=== PATIENT | female | born 1995 | race Caucasian/White ===

== ENCOUNTER 2016-07-11 04:11 | Inpatient (IN) | payer MEDICAID ==
[~2016-07-11] VITALS: Ht 149.9 cm; Wt 49.4 kg
[2016-07-11 04:35] VITALS: BP 116/56; PULSE 91; RESP 18; TEMP 97.9; O2SAT 98
[2016-07-11] MEDS ORDERED: DICY20TA55 PO (04:44)
[2016-07-11] MEDS ORDERED: NACL 0.9% 1,000 ML IV ONE (04:44)
[2016-07-11] MEDS ORDERED: MORPHINE 4 MG/ML INJ. SYRINGE IVP ONE (04:45)
[2016-07-11] MEDS ORDERED: KETOROLAC TROMETHAMINE 30 MG VIAL IVP ONE (04:45)
[2016-07-11] MEDS ORDERED: DIPHENHYDRAMINE INJ 50 MG/ML VIAL IVP ONE (04:45)
[2016-07-11] MEDS ORDERED: ONDANSETRON HCL 4 MG/2 ML VIAL IVP ONE (04:45)
[2016-07-11 05:26] LABS: BASOPHILS % (AUTO) 0.7 % (0.0-2.0); EOSINOPHILS # (AUTO) 0.1 K/uL (0.0-0.4); EOSINOPHILS % (AUTO) 1.6 % (0.0-4.0); HEMATOCRIT 40.3 % (36-48); HEMOGLOBIN 13.5 g/dL (12.0-16.0); LYMPHOCYTES % (AUTO) 29.5 % (20.5-51.5); MEAN CORPUSCULAR HEMOGLOBIN 28 pg (27-31); MEAN CORPUSCULAR HGB CONC 33 % (32-36); MEAN CORPUSCULAR VOLUME 85 fL (79.0-98.0); MONOCYTES # (AUTO) 0.4 K/uL (0.0-1.0); MONOCYTES % (AUTO) 5.9 % (1.7-9.3); NEUTROPHILS # (AUTO) 4.4 K/uL (1.8-7.7); NEUTROPHILS % (AUTO) 62.3 % (40.0-70.0); PLATELET COUNT (AUTO) 265 K/uL (130-430); RED BLOOD CELL COUNT(AUTO) 4.74 MIL/uL (4.2-6.2); RED CELL DISTRIBUTION WIDTH 12.4 % (9.0-15.0); WHITE BLOOD COUNT (AUTO) 6.9 K/uL (4.8-10.8)
[2016-07-11 05:32] LABS: CALCIUM 9.5 mg/dL (8.4-11.0); CREATININE 0.56 mg/dL (0.55-1.30); POTASSIUM 3.8 mmol/L (3.5-5.1)
[2016-07-11 05:36] LABS: ALBUMIN 4.4 g/dL (3.4-4.8); TOTAL BILIRUBIN 0.5 mg/dL (0.0-1.0); TOTAL PROTEIN, SERUM 8.7 g/dL (6.4-8.3)
[2016-07-11 05:38] LABS: BILIRUBIN,URINE NEGATIVE (NEGATIVE); BLOOD, URINE 1+ (NEGATIVE); CLARITY/URINE CLEAR (CLEAR); COLOR,URINE YELLOW (YELLOW); GLUCOSE,URINE NEGATIVE (NEGATIVE); KETONES,URINE TRACE (NEGATIVE); LEUKOCYTE ESTERASE ,URINE NEGATIVE (NEGATIVE); NITRITE, URINE NEGATIVE (NEGATIVE); PROTEIN URINE NEGATIVE (NEGATIVE); UROBILINOGEN,URINE 0.2 (0.2-1.0)
[2016-07-11 05:41] LABS: BACTERIA,URINE FEW /HPF (None Seen); MUCUS,URINE 1+ /LPF (None Seen); RBC,URINE 0-3 /HPF (0-3)
[2016-07-11] MEDS ORDERED: MORPHINE 2 MG/ML INJ. SYRINGE IVP ONE (06:45)
[2016-07-11] MEDS ORDERED: LR 1,000 ML IV ONE (10:15)
[2016-07-11 10:35] VITALS: BP 109/68; PULSE 69; RESP 18; TEMP 96.8; O2SAT 99
[2016-07-11] MEDS ORDERED: IOHEXOL 50 ML IV ONE (13:25)
[2016-07-11] MEDS ORDERED: NS IRRIG SOLN 1000 ML IR ONE (14:00)
[2016-07-11] MEDS ORDERED: GLYCOPYRROLATE 0.2 MG/ML VIAL ONE (14:00)
[2016-07-11] MEDS ORDERED: ONDANSETRON HCL 4 MG/2 ML VIAL ONE (14:00)
[2016-07-11] MEDS ORDERED: LR 1,000 ML IV.SOLN IV ONE (14:00)
[2016-07-11] MEDS ORDERED: PROPOFOL 200MG/ 20ML VIAL (DIPRIVAN) IV ONE (14:00)
[2016-07-11] MEDS ORDERED: NEOSTIGMINE METHYLSULFATE 1 MG/ML, 10 ML VIAL ONE (14:00)
[2016-07-11] MEDS ORDERED: fentaNYL CITRATE 250 MCG/5 ML AMP ONE (14:00)
[2016-07-11] MEDS ORDERED: SEVOFLURANE 15 MIN GAS INH ONE (14:00)
[2016-07-11] MEDS ORDERED: MIDAZOLAM HCL 5 MG/5 ML VIAL ONE (14:00)
[2016-07-11] MEDS ORDERED: LR 1,000 ML IV SCH (14:03)
[2016-07-11] MEDS ORDERED: METOCLOPRAMIDE HCL 10 MG/2 ML VIAL IVP PRN (14:15)
[2016-07-11] MEDS ORDERED: MORPHINE 2 MG/ML INJ. SYRINGE IVP PRN ×3 (14:15)
[2016-07-11] MEDS: MORPHINE 2 MG/ML INJ. SYRINGE IVP PRN (17:55)
[2016-07-11] MEDS: ONDANSETRON HCL 4 MG/2 ML VIAL IVP PRN (17:55)
[2016-07-11] MEDS: cefOXitin SODIUM 1 GM in D5W 50 ML IV SCH (18:33)
[2016-07-11 20:00] VITALS: BP 128/76; PULSE 78; RESP 18; TEMP 97.6; O2SAT 96
[2016-07-12] VITALS (7 sets, daily range): BP systolic 109–121; BP diastolic 70–86; PULSE 77–88; RESP 16–18; TEMP 96–97.8; O2SAT 96–99
[2016-07-12] MEDS: cefOXitin SODIUM 1 GM in D5W 50 ML IV SCH ×5 (00:17→23:11)
[2016-07-12] MEDS: MORPHINE 2 MG/ML INJ. SYRINGE IVP PRN ×4 (00:26→14:53)
[2016-07-12 07:20] LABS: BASOPHILS % (AUTO) 0.5 % (0.0-2.0); EOSINOPHILS # (AUTO) 0.1 K/uL (0.0-0.4); EOSINOPHILS % (AUTO) 1.4 % (0.0-4.0); HEMATOCRIT 32.5 % (36-48); HEMOGLOBIN 10.9 g/dL (12.0-16.0); INR 1.1 (0.8-1.2); LYMPHOCYTES # (AUTO) 1.4 K/uL (1.0-5.5); LYMPHOCYTES % (AUTO) 25.5 % (20.5-51.5); MEAN CORPUSCULAR HEMOGLOBIN 29 pg (27-31); MEAN CORPUSCULAR HGB CONC 34 % (32-36); MEAN CORPUSCULAR VOLUME 85 fL (79.0-98.0); MONOCYTES # (AUTO) 0.5 K/uL (0.0-1.0); MONOCYTES % (AUTO) 9.7 % (1.7-9.3); NEUTROPHILS # (AUTO) 3.6 K/uL (1.8-7.7); NEUTROPHILS % (AUTO) 62.9 % (40.0-70.0); PLATELET COUNT (AUTO) 177 K/uL (130-430); PROTHROMBIN TIME 11.6 SECS (9.5-12.5); RED BLOOD CELL COUNT(AUTO) 3.82 MIL/uL (4.2-6.2); RED CELL DISTRIBUTION WIDTH 12.6 % (9.0-15.0); WHITE BLOOD COUNT (AUTO) 5.6 K/uL (4.8-10.8)
[2016-07-12 07:25] LABS: CALCIUM 8.5 mg/dL (8.4-11.0); CREATININE 0.71 mg/dL (0.55-1.30); POTASSIUM 3.6 mmol/L (3.5-5.1)
[2016-07-12 07:26] LABS: ALBUMIN 3.2 g/dL (3.4-4.8); TOTAL BILIRUBIN 0.5 mg/dL (0.0-1.0); TOTAL PROTEIN, SERUM 6.7 g/dL (6.4-8.3)
[2016-07-12] MEDS ORDERED: KETOROLAC TROMETHAMINE 30 MG VIAL IVP ONE (10:45)
[2016-07-12] MEDS ORDERED: ROCURONIUM BROMIDE 10 MG/ML (ZEMURON) IV ONE (10:45)
[2016-07-12] MEDS ORDERED: DEXAMETHASONE SOD PHOSPHATE 4 MG/ML VIAL IVP ONE (10:45)
[2016-07-12] MEDS ORDERED: EPINEPHrine 1 MG/ML AMP IVP ONE (10:45)
[2016-07-12] MEDS ORDERED: NS IRRIG SOLN 1000 ML IR ONE (10:45)
[2016-07-12] MEDS ORDERED: LR 1,000 ML IV.SOLN IV ONE (10:45)
[2016-07-12] MEDS ORDERED: SEVOFLURANE 15 MIN GAS INH ONE (10:45)
[2016-07-12] MEDS ORDERED: PROPOFOL 200MG/ 20ML VIAL (DIPRIVAN) IV ONE (10:45)
[2016-07-12] MEDS ORDERED: ONDANSETRON HCL 4 MG/2 ML VIAL IVP ONE (10:45)
[2016-07-12] MEDS ORDERED: fentaNYL CITRATE/PF 100 MCG/2 ML AMP IVP ONE (10:45)
[2016-07-12] MEDS ORDERED: IOHEXOL 50 ML IV ONE (11:02)
[2016-07-12] MEDS ORDERED: LR 1,000 ML IV SCH (11:10)
[2016-07-12] MEDS ORDERED: HYDROmorphone 1 MG INJ. 1 MG/ML AMPUL IVP PRN (11:15)
[2016-07-12] MEDS ORDERED: HYDROmorphone 2 MG/ML VIAL IVP PRN ×2 (11:15)
[2016-07-12] MEDS ORDERED: MEPERIDINE HCL/PF 25 MG/ML DISP.SYRIN IVP PRN (11:15)
[2016-07-12] MEDS ORDERED: HYDROmorphone 1 MG INJ. 1 MG/ML AMPUL IVP ONE (17:45)
[2016-07-12 17:48] LABS: BASOPHILS % (AUTO) 0.6 % (0.0-2.0); EOSINOPHILS % (AUTO) 0.7 % (0.0-4.0); HEMATOCRIT 34.4 % (36-48); HEMOGLOBIN 11.6 g/dL (12.0-16.0); LYMPHOCYTES # (AUTO) 1.5 K/uL (1.0-5.5); LYMPHOCYTES % (AUTO) 24.2 % (20.5-51.5); MEAN CORPUSCULAR HEMOGLOBIN 29 pg (27-31); MEAN CORPUSCULAR HGB CONC 34 % (32-36); MEAN CORPUSCULAR VOLUME 85 fL (79.0-98.0); MONOCYTES # (AUTO) 0.6 K/uL (0.0-1.0); MONOCYTES % (AUTO) 9.4 % (1.7-9.3); NEUTROPHILS # (AUTO) 3.9 K/uL (1.8-7.7); NEUTROPHILS % (AUTO) 65.1 % (40.0-70.0); PLATELET COUNT (AUTO) 192 K/uL (130-430); RED BLOOD CELL COUNT(AUTO) 4.03 MIL/uL (4.2-6.2); RED CELL DISTRIBUTION WIDTH 12.3 % (9.0-15.0)
[2016-07-12] MEDS: ONDANSETRON HCL 4 MG/2 ML VIAL IVP PRN (19:42)
[2016-07-13] VITALS: BP 121/76; PULSE 77; RESP 17; TEMP 97; O2SAT 99
[2016-07-13] MEDS: MORPHINE 2 MG/ML INJ. SYRINGE IVP PRN (03:32)
[2016-07-13 04:00] VITALS: BP 125/70; PULSE 70; RESP 18; TEMP 97.6; O2SAT 98
[2016-07-13] MEDS: cefOXitin SODIUM 1 GM in D5W 50 ML IV SCH ×2 (05:06→12:07)
[2016-07-13 07:24] LABS: ALBUMIN 3.5 g/dL (3.4-4.8); BILIRUBIN,DIRECT 0.1 mg/dL (0.0-0.3); TOTAL BILIRUBIN 0.4 mg/dL (0.0-1.0); TOTAL PROTEIN, SERUM 7.1 g/dL (6.4-8.3)
[2016-07-13 08:27] VITALS: BP 114/71; PULSE 89; RESP 19; TEMP 97.6; O2SAT 100
[2016-07-13 12:00] VITALS: BP 118/78; PULSE 96; RESP 21; TEMP 98.4; O2SAT 98
[2016-07-13] MEDS ORDERED: HYDR-1189 PO (13:08)
[2016-07-13] MEDS ORDERED: DOCU-144 PO (13:09)
[2016-07-13 14:00] VITALS: BP 118/78; PULSE 96; RESP 21; TEMP 98.4; O2SAT 98
[2016-07-13 16:00] VITALS: BP 106/66; PULSE 89; RESP 21; TEMP 98.6; O2SAT 99
== END 2016-07-13 16:45 | disposition home or self-care (01) | DRG 263 ==
LOC: SED 04:11 → SMU 10:10
PROVIDERS: ADMIT Surgery; ATTEND Surgery
PROC: BF121ZZ Fluoroscopy of Gallbladder using Low Osmolar Contrast (ICD-10-PCS; 2016-07-11)
PROC: 0FT44ZZ Resection of Gallbladder, Percutaneous Endoscopic Approach (ICD-10-PCS; principal; 2016-07-11 13:00)
DX: K80.63 Calculus of gallbladder and bile duct with acute cholecystitis with obstruction (principal); K66.0 Peritoneal adhesions (postprocedural) (postinfection)
CPT/HCPCS: 36415; 74300; 74330-TC; 80053; 80076; 81000-TC; 83690-TC; 84702-TC; 85025; 85610-TC; 87081; 88304; 94010; 96374; 96375; 99285; C1727; C1769; J0171; J0694; J1100; J1170; J1200; J1885; J2250; J2270; J2405; J2704; J2710; J3010; J3490; J7030; J7050; J7060; J7120; Q9967

== ENCOUNTER 2017-05-05 07:49 | Emergency (ER) | payer MEDICAID ==
[~2017-05-05] VITALS: Ht 149.9 cm; Wt 50.8 kg
[~2017-05-05 07:49] MED LIST: DOCU-144 PO; HYDR-1189 PO
--- NOTE | 2017-05-05 07:49 | NUR ---
BROUGHT BACK TO BED #7 AND TRIAGED. REPORT GIVEN TO KATRINA/EBENEZER
[2017-05-05 07:50] VITALS: BP_SYST 126
--- NOTE | 2017-05-05 08:11 | NUR ---
Pt presents to the ED c/o pain 11/23 mid epigastric pain x2 weeks that radiates to R side of ribcage under armpit. Pt states the pain begins at 4-5am every morning and lasts for a few hours. Pt denies n/v, fever. Pt ambulated to ER with steady gait, unlabored breathing, clear lungs. No deformity to abdomen. No other injuries/complaints per pt or noted.
--- NOTE | 2017-05-05 08:38 | NUR ---
ER Dr. CANAS at bedside examining patient.
[2017-05-05 08:56] LABS: BILIRUBIN,URINE NEGATIVE (NEGATIVE); CLARITY/URINE SL HAZY (CLEAR); COLOR,URINE YELLOW (YELLOW); GLUCOSE,URINE NEGATIVE (NEGATIVE); KETONES,URINE NEGATIVE (NEGATIVE); LEUKOCYTE ESTERASE ,URINE NEGATIVE (NEGATIVE); NITRITE, URINE NEGATIVE (NEGATIVE); PH,URINE 5.5 (5.0-8.0); PROTEIN URINE NEGATIVE (NEGATIVE); UROBILINOGEN,URINE 0.2 (0.2-1.0)
[2017-05-05 08:56] LABS: BASOPHILS # (AUTO) 0.1 K/uL (0.0-0.2); BASOPHILS % (AUTO) 1.1 % (0.0-2.0); EOSINOPHILS # (AUTO) 0.1 K/uL (0.0-0.4); EOSINOPHILS % (AUTO) 1.9 % (0.0-4.0); HEMATOCRIT 39.9 % (36-48); HEMOGLOBIN 13.4 g/dL (12.0-16.0); LYMPHOCYTES % (AUTO) 37.5 % (20.5-51.5); MEAN CORPUSCULAR HEMOGLOBIN 29 pg (27-31); MEAN CORPUSCULAR HGB CONC 34 % (32-36); MEAN CORPUSCULAR VOLUME 87 fL (79.0-98.0); MONOCYTES # (AUTO) 0.4 K/uL (0.0-1.0); MONOCYTES % (AUTO) 8.5 % (1.7-9.3); NEUTROPHILS # (AUTO) 2.7 K/uL (1.8-7.7); PLATELET COUNT (AUTO) 213 K/uL (130-430); RED BLOOD CELL COUNT(AUTO) 4.57 MIL/uL (4.2-6.2); RED CELL DISTRIBUTION WIDTH 11.7 % (9.0-15.0); WHITE BLOOD COUNT (AUTO) 5.3 K/uL (4.8-10.8)
[2017-05-05 09:01] LABS: BLOOD, URINE TRACE (NEGATIVE)
[2017-05-05 09:11] LABS: HCG,QUAL RESULT NEGATIVE (NEGATIVE)
[2017-05-05 09:14] LABS: INR 1.1 (0.8-1.2)
[2017-05-05 09:33] LABS: CALCIUM 9.3 mg/dL (8.4-11.0); POTASSIUM 4.1 mmol/L (3.5-5.1)
[2017-05-05 09:34] LABS: ALBUMIN 4.1 g/dL (3.4-4.8); CREATININE 0.61 mg/dL (0.55-1.30); TOTAL BILIRUBIN 0.4 mg/dL (0.0-1.0)
[2017-05-05 09:50] LABS: BACTERIA,URINE FEW /HPF (None Seen); MUCUS,URINE 1+ /LPF (None Seen); WBC,URINE 0-3 /HPF (0-3)
--- NOTE | 2017-05-05 09:58 | NUR ---
ER Dr. CANAS at bedside with patient.
[2017-05-05] MEDS ORDERED: NACL 0.9% 1,000 ML IV ONE (10:00)
[2017-05-05] MEDS ORDERED: IOHEXOL 100 ML IV ONE (10:22)
--- NOTE | 2017-05-05 10:29 | NUR ---
Pt taken to radiology in stable condition.
--- NOTE | 2017-05-05 11:17 | NUR ---
DR CANAS AT BEDSIDE SPEAKING WITH PT AND FOR RE-EVALUATION
[2017-05-05 11:56] VITALS: BP_SYST 132
--- NOTE | 2017-05-05 11:57 | NUR ---
Patient given written and verbal discharge instructions and verbalizes understanding. ER MD discussed with patient the results and treatment provided. Patient in stable condition. ID arm band removed. IV catheter removed intact and dressing applied, no active bleeding. Rx of RANITIDINE given. Patient educated on pain management and to follow up with PMD. Pain Scale 0/10. Opportunity for questions provided and answered.
== END 2017-05-05 11:56 | disposition home or self-care (01) ==
LOC: SED 07:49
DX: R10.13 Epigastric pain (principal); Z90.49 Acquired absence of other specified parts of digestive tract
CPT/HCPCS: 36415; 74177; 80053; 81000; 81025; 82150; 82550; 83690; 84703; 85025; 85610; 96360; 99285; J7030; Q9967